=== PATIENT | female | born 1940 | race Caucasian/White ===

== ENCOUNTER 2020-12-30 15:40 | Observation (INO) ==
[2020-12-30] MEDS ORDERED: ALBUTEROL/IPRATROPIUM 3 ML NEB RESP TX STA ×2 (16:16→17:56)
[2020-12-30 16:50] LABS: Basophils % 0.2 % (0.0-0.8); Eosinophils % 0.3 % (0.00-10.9); Hematocrit 30.8 VOL% (35.7-47.0); Hemoglobin 10.2 GM/DL (12.0-16.0); Immature Granulocytes % 0.9 %; Lymphocytes # 2.5 10*3/uL (1.4-4.0); Lymphocytes % 22.4 % (21.3-54.2); Mean Corpuscular HGB Conc 33.1 GM/DL (32-36); Mean Platelet Volume 10.3 FL (9.6-12.0); Monocytes % 8.7 % (1.7-12.7); Neutrophils % 67.5 % (38.7-73.9); Platelet Count 205 T/CUMM (130-400); Red Blood Count 3.46 MC/CUMM (3.8-5.5); Red Cell Distribution Width 12.3 % (9.3-17.3)
[2020-12-30 17:10] LABS: Albumin 3.4 G/DL (3.4-5.0); Bilirubin,Total 0.7 MG/DL (0.20-1.00); Calcium 9.2 MG/DL (8.5-10.1); Osmolality,Calculated 277.8 MOS/KG (273-304); Potassium 4.2 MMOL/L (3.5-5.1); Total Protein 7.3 G/DL (6.4-8.2)
[2020-12-30] MEDS ORDERED: cefTRIAXone 1,000 MG in SODIUM CHLORIDE 0.9% 100 ML IV STA (17:57)
[2020-12-30] MEDS ORDERED: AZITHROMYCIN INJ 500 MG in SODIUM CHLORIDE 0.9% 250 ML IV STA (17:57)
[2020-12-30] MEDS ORDERED: DEXTROSE 50% 25 GM/50 ML VIAL IV PRN (18:48)
[2020-12-30] MEDS ORDERED: GLUCAGON 1 MG VIAL IM PRN (18:48)
[2020-12-30] MEDS ORDERED: ENOXAPARIN 30 MG/0.3 ML SYRINGE SUBCUT SCH (19:00)
[2020-12-30] MEDS ORDERED: ENOXAPARIN 40 MG/0.4 ML SYRINGE SUBCUT SCH (19:00)
[2020-12-30] MEDS ORDERED: FLUTICASONE 50 MCG NASAL SPRAY 16 GM BOTTLE BOTH NARES PRN (19:27)
[2020-12-30] MEDS: ALBUTEROL 2.5 MG/3 ML NEB RESP TX SCH (20:30)
[2020-12-30] MEDS: SODIUM CHLORIDE 0.9% 1,000 ML IV SCH (20:54)
[2020-12-30] MEDS: hydrALAZINE 25 MG TABLET PO SCH (20:54)
[2020-12-30] MEDS: methylPREDNISolone SOD SUC 40 MG/1 ML VIAL IV SCH (20:55)
[2020-12-30] MEDS ORDERED: TICAGRELOR 90 MG TABLET PO SCH (21:00)
[2020-12-30] MEDS: INSULIN REGULAR 100 UNIT/ML SUBCUT SCH (21:01)
[2020-12-31] MEDS: ALBUTEROL 2.5 MG/3 ML NEB RESP TX SCH ×4 (00:09→19:23)
[2020-12-31] MEDS: methylPREDNISolone SOD SUC 40 MG/1 ML VIAL IV SCH ×3 (02:09→18:51)
[2020-12-31] MEDS: LEVOTHYROXINE 50 MCG TABLET PO SCH (06:13)
[2020-12-31 07:03] LABS: Hematocrit 31.6 VOL% (35.7-47.0); Hemoglobin 10.3 GM/DL (12.0-16.0); Immature Granulocytes % 0.6 %; Immature Granulocytes Absolute 0.05 #; Lymphocytes # 1.1 10*3/uL (1.4-4.0); Lymphocytes % 13.9 % (21.3-54.2); Mean Corpuscular HGB Conc 32.6 GM/DL (32-36); Mean Corpuscular Volume 91.1 FL (87-102); Mean Platelet Volume 10.7 FL (9.6-12.0); Monocytes % 0.8 % (1.7-12.7); Neutrophils % 84.7 % (38.7-73.9); Platelet Count 223 T/CUMM (130-400); Red Blood Count 3.47 MC/CUMM (3.8-5.5); Red Cell Distribution Width 12.5 % (9.3-17.3)
[2020-12-31 07:22] LABS: Osmolality,Calculated 289.2 MOS/KG (273-304); Potassium 4.7 MMOL/L (3.5-5.1)
[2020-12-31] MEDS: amLODIPine 2.5 MG TABLET PO SCH (08:25)
[2020-12-31] MEDS: EZETIMIBE 10 MG TABLET PO SCH (08:26)
[2020-12-31] MEDS: ASPIRIN EC 81 MG TABLET PO SCH (08:26)
[2020-12-31] MEDS: RIVAROXABAN 2.5 MG TABLET PO SCH ×2 (08:26→20:34)
[2020-12-31] MEDS: hydrALAZINE 25 MG TABLET PO SCH ×3 (08:26→20:34)
[2020-12-31] MEDS: LOSARTAN 25 MG TABLET PO SCH (08:26)
[2020-12-31] MEDS: AZITHROMYCIN 250 MG TABLET PO SCH (08:27)
[2020-12-31] MEDS: INSULIN REGULAR 100 UNIT/ML SUBCUT SCH ×4 (08:27→20:34)
[2020-12-31] MEDS: SODIUM CHLORIDE 0.9% 1,000 ML IV SCH (16:39)
[2020-12-31] MEDS ORDERED: sitaGLIPtin 100 MG TABLET PO SCH (17:00)
[2020-12-31] MEDS ORDERED: RIVAROXABAN 2.5 MG TABLET PO SCH (21:00)
[2020-12-31] MEDS ORDERED: carvediloL 25 MG TABLET PO SCH (21:00)
[2020-12-31] MEDS ORDERED: INSULIN GLARGINE 100 UNIT/ML SUBCUT SCH ×2 (21:00)
[2021-01-01] MEDS: ALBUTEROL 2.5 MG/3 ML NEB RESP TX SCH ×2 (00:20→07:10)
[2021-01-01] MEDS: methylPREDNISolone SOD SUC 40 MG/1 ML VIAL IV SCH ×2 (02:46→12:15)
[2021-01-01] MEDS: LEVOTHYROXINE 50 MCG TABLET PO SCH (05:58)
[2021-01-01 06:06] LABS: Basophils % 0.1 % (0.0-0.8); Hematocrit 28.3 VOL% (35.7-47.0); Hemoglobin 9.2 GM/DL (12.0-16.0); Immature Granulocytes % 0.7 %; Immature Granulocytes Absolute 0.09 #; Lymphocytes # 1.3 10*3/uL (1.4-4.0); Lymphocytes % 10.3 % (21.3-54.2); Mean Corpuscular HGB Conc 32.5 GM/DL (32-36); Mean Corpuscular Volume 90.7 FL (87-102); Mean Platelet Volume 10.4 FL (9.6-12.0); Monocytes % 3.3 % (1.7-12.7); Neutrophils % 85.6 % (38.7-73.9); Platelet Count 237 T/CUMM (130-400); Red Blood Count 3.12 MC/CUMM (3.8-5.5); Red Cell Distribution Width 12.8 % (9.3-17.3); White Blood Count 12.3 T/CUMM (4-12)
[2021-01-01 06:38] LABS: Osmolality,Calculated 288.7 MOS/KG (273-304); Potassium 4.4 MMOL/L (3.5-5.1)
[2021-01-01] MEDS: LOSARTAN 25 MG TABLET PO SCH (09:15)
[2021-01-01] MEDS: AZITHROMYCIN 250 MG TABLET PO SCH (09:15)
[2021-01-01] MEDS: RIVAROXABAN 2.5 MG TABLET PO SCH (09:15)
[2021-01-01] MEDS: INSULIN REGULAR 100 UNIT/ML SUBCUT SCH ×2 (09:15→13:09)
[2021-01-01] MEDS: EZETIMIBE 10 MG TABLET PO SCH (09:15)
[2021-01-01] MEDS: ASPIRIN EC 81 MG TABLET PO SCH (09:15)
[2021-01-01] MEDS: hydrALAZINE 25 MG TABLET PO SCH (09:16)
[2021-01-01] MEDS: amLODIPine 2.5 MG TABLET PO SCH (09:16)
[2021-01-01 11:57] VITALS: BP 146/52
== END 2021-01-01 13:36 | disposition home or self-care (01) ==
LOC: N.EDINP 15:40 → N.ED 15:40 → N.5E 19:40
PROVIDERS: ADMIT Phlebology; ATTEND Phlebology